=== PATIENT | female | born 1970 | race Caucasian/White ===

== ENCOUNTER 2019-09-07 17:43 | Emergency (ER) | payer OTHER, SELFPAY ==
--- NOTE | ~2019-09-07 | XR_ITS ---
EXAMINATION: XR elbow LT min 3V DATE: 09/07/2019 18:20 INDICATION: Left elbow pain TECHNIQUE: Anteroposterior, two oblique and lateral views of the left elbow were obtained. COMPARISON: None. FINDINGS: Alignment is normal. No fracture or joint effusion. Joint spaces are normal. Soft tissues a re unremarkable. IMPRESSION: 1. No acute osseous abnormality. Reviewed, dictated and finalized at location A.
--- NOTE | 2019-09-07 17:53 | ED.UPPEXIN ---
HPI - Extremity Injury (Upper) General Chief Complaint: Extremity Injury, Upper Stated Complaint: left arm injury Time Seen by Provider: 09/07/19 18:27 Source: patient and RN notes reviewed Mode of arrival: ambulatory Limitations: no limitations History of Present Illness HPI narrative: 49-year-old female presents with concern for elbow injury, head injury. Reports yesterday she tripped and fell down the stairs, landed on her elbow, may have hit her head. Is unsure if she lost consciousness. She denies any vomiting. Reports when she shakes her head she sees stars. Reports left elbow pain, bruising complaint: injury to: left and elbow Related Data Home Medications Medication Instructions Recorded Confirmed No Home Medications 09/07/19 09/07/19 Allergies Allergy/AdvReac Type Severity Reaction Status Date / Time No Known Allergies Allergy Unknown Verified 09/07/19 17:48 Review of Systems Review of Systems: Narrative: CONSTITUTIONAL: Denies malaise, chills, sweats, or fever. EYES: Denies visual changes CARDIOVASCULAR: Denies chest pain, palpitations, or edema. RESPIRATORY: Denies dyspnea. GASTROINTESTINAL: Denies abdominal pain, nausea, vomiting SKIN: Reports left elbow bruising MUSCULOSKELETAL: Reports left elbow pain NEUROLOGIC: Denies numbness, weakness, or headache. All systems reviewed & are unremarkable except as noted in HPI and below PMFSH Social History Social History Gender identity (if verbalized by the patient): Female Comments At time of signature, agree with nursing past medical, surgical, social and family history. There is no relevant family history pertinent to the presenting complaint Exam Narrative: Exam Narrative: GENERAL: Well-appearing, well-nourished, and in no acute distress. HEAD: Normocephalic, atraumatic. EYES: PERRLA, conjunctivae clear NECK: Supple. CHEST: Speaks in full sentences. No respiratory distress. HEART: Regular rate and rhythm. Normal and equal peripheral pulses. EXTREMITIES: Left arm, elbow, hand, digits has normal strength and sensation, normal range of motion. Mild lateral elbow edema and ecchymosis, tenderness. 5/5 strength with elbow, wrist, digit flexion and extension. Normal sensation with sensitivity to light touch and pain. No open wounds, no skin tenting, no devitalized tissue or atrophy, no trophic changes, no obvious deformity, alignment normal, no point tenderness, nearby joints and structures intact. Distal pulses palpable and equal bilaterally, skin warm, dry, pink. Capillary refill less than 3 seconds. SKIN: Warm, dry, no rash. NEURO: Alert and oriented x3. No focal deficits. Cranial nerves II through XII grossly intact PSYCH: Normal mood and affect Course Course Emergency Course: Patient is aware of diagnosis, understands and agrees to treatment plan. Anticipatory guidance given. Patient agrees to follow-up as directed and is aware of reasons to seek care at the emergency department. Portions of this record may have been created with voice recognition software Vital Signs Vital signs: Vital Signs Temperature 98.4 F 09/07/19 18:00 Pulse Rate 60 09/07/19 18:00 Respiratory Rate 18 09/07/19 18:00 Blood Pressure 121/68 09/07/19 18:00 Pulse Oximetry 99 09/07/19 18:00 Temperature 98.4 F 09/07/19 18:00 Pulse Rate 60 09/07/19 18:00 Respiratory Rate 18 09/07/19 18:00 Blood Pressure 121/68 09/07/19 18:00 Pulse Oximetry 99 09/07/19 18:00 Reviewed. MDM - Extremity Injury (Upper) MDM Narrative Medical decision making narrative: CCHR score: Signs of open or depressed skull fracture: No Sidhu sign/raccoon eyes: No 2 or more episodes of vomiting: No Age 65 years +: No Amnesia for events occurring 30 minutes prior to trauma: No Dangerous mechanism of injury (pedestrian struck by motor vehicle, occupant ejected from motor vehicle, fall from >3 feet or >5 stairs): No Exam findings show no acute concerns; patient i
[2019-09-07 18:00] VITALS: BP 121/68; PULSE 60; RESP 18; TEMP 36.9; O2SAT 99
== END 2019-09-07 18:46 | disposition home or self-care (01) ==
PROVIDERS: Emergency Provider Nurse Practitioner; PCP Family Medicine
DX: S09.90XA Unspecified injury of head, initial encounter (principal); S50.02XA Contusion of left elbow, initial encounter; W10.9XXA Fall (on) (from) unspecified stairs and steps, initial encounter
CPT/HCPCS: 73080; 99213; A4565; G0463

== ENCOUNTER 2019-10-17 11:46 | Outpatient (CLI) | payer OTHER, SELFPAY ==
--- NOTE | ~2019-10-17 | XR_ITS ---
EXAMINATION: XR lumbar spine 2-3V DATE: 10/17/2019 12:54 INDICATION: Dorsalgia, unspecified TECHNIQUE: Anteroposterior and lateral views of the lumbar spine, and cone-down lateral view of the l umbosacral junction were obtained. COMPARISON: 06/23/2014 FINDINGS: The vertebral body heights and alignment are normal. There is no fracture. There is mild ch ronic loss of intervertebral disc space height from L3-4 through L5-S1. Small degenerative osteophyte s project from the anterior endplates of multiple vertebral bodies. IMPRESSION: 1. Mild lumbar spondylosis without acute findings or significant interval change. Reviewed, dictated and finalized at location A. IMPRESSION: 1. Mild lumbar spondylosis without acute findings or significant interval bao solis
--- NOTE | ~2019-10-17 | XR_ITS ---
XR sacrum coccyx min 2V DATE: 10/17/2019 12:54 INDICATION: Low back pain radiating to left hip. Sacrococcygeal disorder. TECHNIQUE: AP, angled AP and lateral views COMPARISON: None FINDINGS: No fracture or bone destruction of the sacrum or coccyx. The pubic symphysis and sacral azar ac joints are intact. IMPRESSION: Negative Reviewed, dictated and finalized at location B. IMPRESSION: Negative
== END 2019-10-17 11:47 | disposition home or self-care (01) ==
LOC: ANHIMG 11:57
PROVIDERS: PCP Family Medicine; Visit Provider Physician Assistant
DX: M54.5 Low back pain (principal); M53.3 Sacrococcygeal disorders, not elsewhere classified; W19.XXXA Unspecified fall, initial encounter; M47.816 Spondylosis without myelopathy or radiculopathy, lumbar region
CPT/HCPCS: 72100; 72220

== ENCOUNTER → 2020-06-04 11:01 | Outpatient (CLI) | payer OTHER, SELFPAY ==
[2020-06-05 17:45] LABS: SARS-CoV-2 RNA PCR Negative
== END ==
PROVIDERS: PCP Family Medicine; Visit Provider Family Medicine
DX: Z01.812 Encounter for preprocedural laboratory examination (principal); Z20.822 Contact with and (suspected) exposure to COVID-19
CPT/HCPCS: C9803; U0003; U0005

== ENCOUNTER 2022-02-21 08:10 | Emergency (ER) | payer OTHER, SELFPAY ==
[2022-02-21 08:22] VITALS: BP 117/52; PULSE 51; RESP 16; TEMP 36.6; O2SAT 100
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
== END 2022-02-21 08:49 | disposition home or self-care (01) ==
PROVIDERS: Emergency Provider Nurse Practitioner
DX: R42 Dizziness and giddiness (principal); Z87.891 Personal history of nicotine dependence
CPT/HCPCS: 99211; G0463

== ENCOUNTER 2023-04-10 00:17 | Day surgery (SDC) | payer OTHER, SELFPAY ==
[2023-03-24 11:53] VITALS: BMI 24.7
--- NOTE | 2023-03-24 12:01 | PC.NURSE ---
Addendum entered by Susy Parry RN 04/03/23 14:56: PT TO ARRIVE AT 0700 ON 04/10/23 FOR SURGERY AT 0900. Original Note: Report to the Outpatient Waiting Room, entrance under the green pavilion located off [facility], at time 0730 on date 04/03/23. Planned Procedure Time: 0930. Time changes happen often and if your time is changed the preop area will call you the afternoon before. - You and your visitor will be asked to self-screen and do not enter if you have any COVID symptoms. - A mask is optional within the hospital at this time. Patients may have clear liquids (water, carbonated beverages, clear teas, apple juice) until 3 hours prior to surgery with a maximum of 20 ounces. - No food from midnight until time of surgery Take the following medications with a SIP of water the morning of surgery: NONE DO NOT STOP ANY OF YOUR OTHER PRESCRIPTION MEDICATIONS PRIOR TO SURGERY ?EXCEPT THE FOLLOWING Medications to discontinue per physician: N/A Date to take last dose: N/A Please no make-up, nail czech, hairspray, perfume, deodorant, or body powder the day of surgery. No jewelry (including any body piercings) or valuables the day of surgery, leave them at home. Please take a shower or bath the night before, or the morning of, surgery with an antibacterial soap. Wear comfortable, loose fitting clothing. - Jewelry must be removed prior to entering the operating room. Rings and piercings that are not removed may be cut off. - The hospital will not accept responsibility for valuables. - Please leave all valuables, including medications, at home the day of surgery. If you are going home after surgery, a licensed bookmobile driver must drive you home. - NO public transportation without another adult if you receive anesthesia. - We recommend that an adult stay with you for 24 hours following discharge. - We also recommend that you do not drive, make important decision, drink alcoholic beverages, or take any drugs that were not prescribed by your health care provider for at least 24 hours after your discharge time. Follow any additional instructions given to you from your surgeon. If you or anyone in your household have experienced Covid symptoms in the past week, please notify your surgeon or the nurse liaison at the phone number below for possible testing. Telephone instructions given to MENA LAMB and asked if any additional questions and then verbalized understanding. Patient advised to call surgeon office or pre surgery nurse liaison [phone] if any additional questions.
--- NOTE | 2023-03-29 13:43 | PM.IMHP ---
H&P: HPI History of Present Illness Date/Time: 03/29/23 13:43 Chief Complaint: Patient has a frozen shoulder right. She also has a rotator cuff tear. Narrative: Patient has stiffness and pain in the right shoulder. She does have a tear however she also has a frozen shoulder. She would like to consider manipulation of the shoulder. I told her I can not operate on her rotator cuff until she has full motion Review of Systems Musculoskeletal: Musculoskeletal: Reports arthralgias and Reports joint swelling [facility] History Surgical History (Updated 02/06/23 @ 09:20 by Katrina London [facility]) History of arthroscopic knee surgery History of History of tubal ligation Family History Family History Father Diabetes mellitus Hypertension Family history of cardiovascular disease Mother Hypertension Social History Social History (Updated 02/06/23 @ 09:20 by Katrina London CMA) Social History: Single Smoking status: Never smoker Tobacco type: cigarettes Second hand tobacco smoke exposure: No Smoking end date: 03/13/10 Alcohol intake: current Alcohol use details: HOLIDAYS Substance use: never Substance use type: does not use Lack of Transportation: YES Lack of Food: Sometimes True Current Housing: I Have Housing Concerned About Future Housing: No Difficulty Paying Gas/Electric Bills: No Difficulty Paying for Meds: YES Currently Unemployed: No Education: Master's Degree or Higher Difficulty w/ Childcare or Family Care: No Living arrangements: with family Additional living arrangements comments: DAUGHTER WHEN NOT AT SCHOOL Occupation/Education: occupation Additional occupation/education comments: highschool teacher Gender identity (if verbalized by the patient): Female Sexual Orientation (if Verbalized by the Patient): Straight or Heterosexual Spiritual care concerns: No Meds Home Medications and Allergies Home Medications Medication Instructions Recorded Confirmed Type rizatriptan 5 mg disintegrating 5 mg PO ONCE MIGRAINE 03/24/23 03/24/23 History tablet ubrogepant 100 mg tablet (Ubrelvy) 100 mg PO ONCE MIGRAINE 03/24/23 03/24/23 History Allergies Allergy/AdvReac Type Severity Reaction Status Date / Time tramadol AdvReac Intermediate vomiting/na Verified 03/24/23 11:51 usea Exam Narrative: Patient has stiffness of her right shoulder. She has elevation about 120 external rotation about 20. He does have some give-way in abduction and external rotation. Neurologically she appears to be intact. Const: General: no acute distress Eyes: General: appearance normal, both eyes and all related structures Neck: Neck: supple Resp: Effort & Inspection: normal respiratory effort Cardio: Rhythm: regular rhythm Assessment and Plan Assessment and plan (1) Adhesive bursitis of right shoulder: Code(s): M75.01 - Adhesive capsulitis of right shoulder Status: Acute Assessment and Plan: Patient is frozen shoulder right. I told her I really can not fix her rotator cuff and tear until I make sure that she has good motion of her shoulder. We talked about a manipulation will proceed today. When she gets her motion back if she is still painful or weak we can consider rotator cuff debridement repair. I have discussed this with her risks benefits limitations and alternatives in detail.
--- NOTE | 2023-04-03 14:57 | PC.NURSE ---
Pt states no changes in medications or health history since initial interview. New pre-op instructions reviewed with pt. Pt denies further questions at this time.
[2023-04-10] VITALS (8 sets, daily range): BP systolic 110–154; BP diastolic 69–94; PULSE 58–73; RESP 12–17; TEMP 36.9; O2SAT 99–100
--- NOTE | 2023-04-10 06:57 | WPDHPUPDATE1 ---
History and Physical Update Update Date/Time: 04/10/23 06:57 History and Physical has been reviewed, including an updated exam of the patient. There are NO changes in the patient's condition. Risks, benefits, and alternatives have been discussed and questions answered. Patient agrees to proceed with procedure.
--- NOTE | 2023-04-10 08:23 | WPDANESEPPF ---
Anes - Initial Pre Proc Eval Procedure: Operation Date: 04/10/23 09:00 Proposed Procedures p Right Shoulder Joint Manipulation - Tay Fregoso MD Date/Time: 04/10/23 08:23 Surgeon: Tay Fregoso MD Pre Op Diagnosis: right frozen shoulder Patient Data Age: 52 Gender: F Height: 1.7 m Weight: 76.4 kg Last Vital Signs Temp 36.9 C 04/10/23 08:18 Pulse 65 04/10/23 08:18 Resp 14 04/10/23 08:18 BP 149/75 H 04/10/23 08:18 Pulse Ox 100 04/10/23 08:18 O2 Del Method Room Air 04/10/23 08:18 Allergies Allergy/AdvReac Type Severity Reaction Status Date / Time tramadol AdvReac Intermediate vomiting/na Verified 04/10/23 08:23 usea Home Medications Medication Instructions Recorded Confirmed Type rizatriptan 5 mg disintegrating 5 mg PO ONCE MIGRAINE 03/24/23 04/03/23 History tablet ubrogepant 100 mg tablet (Ubrelvy) 100 mg PO ONCE MIGRAINE 03/24/23 04/03/23 History Patient hx anesthesia problems: none Family hx anesthesia problems: none Results Review: All pre-operative results and documents have been reviewed as part of the pre-operative evaluation. [facility] Surgical History Surgical History History of arthroscopic knee surgery History of History of tubal ligation Family History Family History Father Diabetes mellitus Hypertension Family history of cardiovascular disease Mother Hypertension Social History Social History Social History: Single Smoking status: Never smoker Tobacco type: cigarettes Second hand tobacco smoke exposure: No Smoking end date: 03/13/10 Alcohol intake: current Alcohol use details: HOLIDAYS Substance use: never Substance use type: does not use Lack of Transportation: YES Lack of Food: Sometimes True Current Housing: I Have Housing Concerned About Future Housing: No Difficulty Paying Gas/Electric Bills: No Difficulty Paying for Meds: YES Currently Unemployed: No Education: Master's Degree or Higher Difficulty w/ Childcare or Family Care: No Living arrangements: with family Additional living arrangements comments: DAUGHTER WHEN NOT AT SCHOOL Occupation/Education: occupation Additional occupation/education comments: highschool teacher Gender identity (if verbalized by the patient): Female Sexual Orientation (if Verbalized by the Patient): Straight or Heterosexual Spiritual care concerns: No Anes - Eval Final PreProcedure Day of Procedure 04/10/23 08:23 Patient weight: normal Heart: regular rate and rhythm Lungs: clear to auscultation Airway: Mallampati scale class II Neurological: alert and oriented Last oral intake: >/= 8 hours ASA classification: II Emergent: no Anesthetic plan: proceed Anesthesia type and monitoring: general LMA and standard monitoring Results Review: All pre-operative results and documents have been reviewed as part of the pre-operative evaluation. Informed Consent: The patient's anesthetic plan and its attendant risks and benefits were discussed with the patient/family/POA. Questions were solicited and answers provided to the satisfaction of the patient/family/POA.
[2023-04-10] MEDS: LACTATED RINGERS 1,000 ML 30 ML IV CONT ×2 (08:27→09:26)
[2023-04-10] MEDS: LIDOCAINE HCL 1% LOCAL INJ 20 ML VIAL 4 ML INFILTRATE (08:37)
[2023-04-10] MEDS: methylPREDNISolone ACETATE 80 MG/ML VIAL IM (08:40)
--- NOTE | 2023-04-10 08:42 | W.PM.PROC2 ---
Procedure Note - Detailed Date of Procedure 04/10/23 Pre-op Diagnosis RIGHT frozen shoulder (Adhesive Capsulitis) Post-op Diagnosis Same Procedure Performed Manipulation and Injection Surgeon Tay Fregoso MD Anesthesia General Indications Pain and Stiffness Description of Procedure Patient brought to operating room 8. A general anesthetic was administered. The shoulder was gently manipulated into full elevation, abduction, and then external rotation. Bands were felt to tear. Full motion was achieved. Patient tolerated the procedure well. She left the operating room satisfactory condition. Before she left the operating room I injected her with 80 milligrams of Depo-Medrol and 4 cubic centimeters 1% lidocaine into the subacromial space. Estimated Blood Loss 0 Complications No immediate complications Condition Stable Disposition PACU [facility] Billing Surgery - Charge Forward: Surgery Billing (Shoulder Manipulation [id number] & Injection)
[2023-04-10] MEDS: fentaNYL CITRATE INJ (*CRX) 100 MCG/2 ML VIAL 25 MCG IV PUSH ×4 (09:11→09:38)
[2023-04-10] MEDS: oxyCODONE HCL (*CRX) 5 MG TAB IR PO (09:55)
== END 2023-04-10 10:36 | disposition home or self-care (01) ==
PROVIDERS: PCP Family Medicine; Visit Provider Orthopaedic Surgery
PROC: (CPT 23700; principal; 2023-04-10 09:00)
DX: M75.01 Adhesive capsulitis of right shoulder (principal); Z98.890 Other specified postprocedural states; Z82.49 Family history of ischemic heart disease and other diseases of the circulatory system
CPT/HCPCS: 23700; A9270; J1040; J1100; J2250; J2405; J2704; J3010; J7120

== ENCOUNTER 2023-06-05 11:38 | Outpatient (CLI) | payer OTHER, SELFPAY ==
--- NOTE | ~2023-06-05 | MR_ITS ---
EXAMINATION: MR shoulder RT wo con DATE: 06/05/2023 12:09 INDICATION: Rotator cuff rupture at the right shoulder presenting with right shoulder pain, weakness and limited range of motion post injury one year prior TECHNIQUE: Magnetic resonance imaging (MRI) of the right shoulder was performed without intravenous c ontrast. Sequences included axial PD-weighted FS FSE, coronal oblique PD-weighted FS FSE, coronal obl ique T2-weighted FS FSE, sagittal PD-weighted FS FSE, and sagittal T1-weighted SE. COMPARISON: None. FINDINGS: Coracoacromial arch: The acromion undersurface is curved in morphology (type II). The coracoacromial ligament is normal. M inimal acromioclavicular osteoarthritis. Rotator cuff: Mild supraspinatus and infraspinatus tendinopathy without tear. The teres minor tendon is normal. Mil d subscapularis tendinopathy without tear. Normal rotator cuff muscle bulk and signal. Biceps tendon, glenoid labrum and glenohumeral cartilage: There is mild tendinopathy without discrete tear of the intra-articular long head biceps tendon. Bobo oid labrum is normal. Glenohumeral cartilage is normal. Fluid: There is small amount of fluid in the long head biceps tendon sheath which is disproportionate to the physiologic amount of fluid in the right humeral joint space consistent with mild bicipital tenosyno vitis. No loose osteochondral bodies. No abnormal fluid signal in the subacromial/subdeltoid bursa to suggest bursitis. Bones: Normal marrow signal with no edema, fracture or abnormal marrow replacing process. There is thickenin g of the joint capsule at the axillary recess as well as thickening of the biceps delisa sling with i ncreased soft tissue replacing the T1 hyperintense fat signal at the rotator cuff interval, both find ings could be seen in the setting of adhesive capsulitis which is a clinical diagnosis. IMPRESSION: 1. Mild bicipital tenosynovitis with mild tendinopathy without tear of the intra-articular long head biceps tendon. 2. Mild supraspinatus, infraspinatus and subscapularis tendinopathy without discrete tear. 3. Thickening of the glenohumeral joint capsule at the axillary recess and thickening of the biceps p ulley sling with increased soft tissue at the rotator cuff interval, both findings which can be seen in the setting of adhesive capsulitis which is ultimately a clinical diagnosis. Reviewed, dictated and finalized at location A. IMPRESSION: 1. Mild bicipital tenosynovitis with mild tendinopathy without tear of the intr a-articular long head biceps tendon. 2. Mild supraspinatus, infraspinatus and subscapularis tendinopathy without dis crete tear. 3. Thickening of the glenohumeral joint capsule at the axillary recess and thic kening of the biceps delisa sling with increased soft tissue at the rotator cuf f interval, both findings which can be seen in the setting of adhesive capsulit is which is ultimately a clinical diagnosis.
== END 2023-06-05 11:39 ==
LOC: MICIMG 11:40
PROVIDERS: PCP Family Medicine; Visit Provider Orthopaedic Surgery
DX: M75.101 Unspecified rotator cuff tear or rupture of right shoulder, not specified as traumatic (principal); M75.21 Bicipital tendinitis, right shoulder; M77.8 Other enthesopathies, not elsewhere classified
CPT/HCPCS: 73221

== ENCOUNTER 2023-07-27 09:22 | Outpatient (CLI) | payer OTHER, SELFPAY ==
--- NOTE | ~2023-07-27 | MR_ITS ---
MRI of the cervical spine Clinical History: Spinal stenosis Technique: Axial T2-weighted and gradient images, and sagittal T1-weighted, T2-weighted, and STIR brandan ges were acquired. Findings: There is no fracture or subluxation of the cervical spine. Vertebral bodies maintain normal height and alignment. No bone marrow signal abnormality seen. At C2-C3, there is no significant disc bulge or herniation. No spinal canal stenosis or cord compress ion. Neural foramina are preserved. At C3-C4, there is mild disc osteophyte complex. There is mild canal stenosis without tabitha cord comp ression. Bilateral neural foramina are preserved. At C4-C5, there is mild disc osteophyte complex with mild canal stenosis and minimal flattening the v entral cord. Bilateral neural foramina are preserved. At C5-C6, there is minimal disc bulge. No spinal canal stenosis or cord compression. Neural foramina are preserved. At C6-C7, there is minimal disc bulge. No spinal canal stenosis, cord compression, or neural foramina l narrowing. No abnormal signal seen in the spinal cord. Paravertebral soft tissues are unremarkable. Impression: Mild degenerative spondylosis, especially at C3-C4 and C4-C5, as detailed above. Reviewed, dictated and finalized at location . Impression: Mild degenerative spondylosis, especially at C3-C4 and C4-C5, as detailed above .
== END 2023-07-27 09:23 ==
LOC: MICIMG 09:22
PROVIDERS: PCP Orthopaedic Surgery; Visit Provider Orthopaedic Surgery
DX: M48.02 Spinal stenosis, cervical region (principal); M47.892 Other spondylosis, cervical region
CPT/HCPCS: 72141